=== PATIENT | male | born 1970 | race Caucasian/White ===

== ENCOUNTER 2021-01-22 04:49 | Emergency (ER) | payer SELFPAY ==
[~2021-01-22] VITALS: Ht 172.7 cm; Wt 86.0 kg
[2021-01-22 04:52] VITALS: BP 187/114
== END 2021-01-22 07:20 | disposition left against medical advice (07) ==
LOC: ER 04:51
DX: G89.29 Other chronic pain (principal); Z53.21 Procedure and treatment not carried out due to patient leaving prior to being seen by health care provider

== ENCOUNTER 2021-12-30 00:28 | Emergency (ER) | payer SELFPAY | END 2021-12-30 00:44 | disposition left against medical advice (07) | LOC: ER 00:29 | DX: M54.9 Dorsalgia, unspecified (principal); Z53.21 Procedure and treatment not carried out due to patient leaving prior to being seen by health care provider ==

== ENCOUNTER 2021-12-30 03:01 | Emergency (ER) | payer SELFPAY | END 2021-12-30 03:35 | disposition left against medical advice (07) | LOC: ER 03:02 | DX: M54.9 Dorsalgia, unspecified (principal); Z53.21 Procedure and treatment not carried out due to patient leaving prior to being seen by health care provider ==

== ENCOUNTER 2021-12-30 07:11 | Emergency (ER) | payer BC ==
[~2021-12-30] VITALS: Ht 170.2 cm; Wt 88.6 kg
[2021-12-30] MEDS ORDERED: oxyCODONE IR 5mg (immed. release) tablet PO ONE (10:10)
[2021-12-30 10:24] VITALS: BP 142/94
== END 2021-12-30 10:25 | disposition home or self-care (01) ==
LOC: ER 07:11
DX: G89.29 Other chronic pain (principal); Z88.0 Allergy status to penicillin; Z79.899 Other long term (current) drug therapy
CPT/HCPCS: 99283